=== PATIENT | male | born 1990 | race Caucasian/White ===

== ENCOUNTER → 2018-01-16 14:59 | Outpatient (CLI) | payer OTHER, SELFPAY ==
[2018-01-16 15:38] LABS: Basophils % 0.7 % (0.1-2.0); Eosinophils # 0.2 K/mm3 (0.0-0.4); Eosinophils % 2.4 % (0.1-12.0); Hematocrit 47.7 % (42.0-52.0); Hemoglobin 16.7 g/dL (14.1-18.0); Lymphocytes # 2.8 K/mm3 (0.7-4.5); Lymphocytes % 42.5 K/mm3 (10-50); Mean Corpuscular Hemoglobin 30.2 pg (27.0-31.2); Mean Corpuscular Volume 86.3 fl (80-94); Mean Platelet Volume 8.5 fl (7.4-10.4); Monocytes # 0.3 K/mm3 (0.1-1.0); Monocytes % 4.5 % (1.7-9.3); Neutrophils # 3.3 K/mm3 (1.8-7.8); Platelet Count 204 K/mm3 (142-424); Red Blood Count 5.53 M/mm3 (4.60-6.20); Red Cell Distribution Width 13.1 % (11.5-17.5); White Blood Count 6.6 K/mm3 (4.8-10.8)
[2018-01-16 16:01] LABS: Hemoglobin A1C 4.8 % (0.0-7.0)
[2018-01-16 18:14] LABS: Alanine Aminotransferase 43 U/L (12-78); Albumin Level 4.2 gm/dL (3.4-5.0); Albumin/Globulin Ratio 1.3 (1.1-1.8); Alkaline Phosphatase 55 U/L (46-116); Anion Gap 12.3 mEq/L (5-15); Aspartate Amino Transferase 22 U/L (15-37); Bilirubin,Total 0.5 mg/dL (0.2-1.0); Blood Urea Nitrogen 12 mg/dL (7-18); Calcium 9.4 mg/dL (8.5-10.1); Carbon Dioxide 27 mmol/L (21.0-32.0); Chloride 104 mmol/L (98-107); Chol/HDL Ratio 6.1 (1-3.5); Cholesterol 184 mg/dL (140-200); Creatinine,Serum 0.89 mg/dL (0.70-1.30); Estimated Glomerular Filt Rate 103 ml/min (>60); GFR (African American) 125 ML/MIN (>60); Globulin 3.2 gm/dl (1.3-3.2); Glucose 84 mg/dL (74-106); HDL Cholesterol 30 mg/dL (27-67); LDL Cholesterol 144 mg/dL (0-130); Potassium 4.3 mmoL/L (3.5-5.1); Sodium 139 mmol/L (136-145); Thyroid Stimulating Hormone 2.02 uIU/ml (0.358-3.740); Total Protein,Serum 7.4 gm/dL (6.4-8.2); Triglycerides 52 mg/dL (30-200); VLDL Cholesterol 10 mg/dL (0-40)
== END ==
PROVIDERS: PCP Family Medicine; Visit Provider Nuclear Medicine Nuclear Cardiology
DX: R06.02 Shortness of breath (principal); I10 Essential (primary) hypertension
CPT/HCPCS: 36415; 80053; 80061; 83036; 84443; 85025

== ENCOUNTER 2020-06-18 15:16 | Emergency (ER) | payer BC, SELFPAY ==
[2020-06-18 15:27] VITALS: BP 171/116; PULSE 101; RESP 15; TEMP 37.2; O2SAT 97; BMI 30.8
[2020-06-18 15:30] VITALS: BP 163/104; PULSE 86; RESP 19; TEMP 37.2; O2SAT 100; BMI 31.6
[2020-06-18 15:46] VITALS: BP 154/96; PULSE 86; RESP 19; TEMP 37.2; O2SAT 100
[2020-06-18 15:47] LABS: UTC Strep Screen (Rapid) Negative (Negative)
--- NOTE | 2020-06-18 15:47 | HMH.EDUTC ---
[facility] [place] Disposition Clinical Impression: Sinusitis Qualifiers: Sinusitis location: unspecified location Chronicity: unspecified Qualified Code(s): J32.9 - Chronic sinusitis, unspecified Disposition: Home, Self-Care Condition on Discharge: Good Instructions: Sore Throat, Cough, DI for Sinusitis, DI for Cough -- Adult Additional Instructions: *Monitor Temp, Over the counter Motrin or Tylenol as directed/as needed Tylenol every 4 hours and Motrin every 6 hours (as long as your family doctor has told you that you can take it) for fever or pain. and straight to ER if unable to lower temp less than 101.0 after medication given *Warm salt water gargles may help to soothe the throat *Throat Lozenges *Warm fluids like tea with honey may help to soothe the throat *Sleep elevated *Humidifier/Vaporizer *Flonase 2 sprays in each nostril daily but be aware that it may take 2-3 days before you notice improvement Your throat swab was sent for culture. Those results are typically sent to your primary care. Be sure to follow up in 2-3 days with your family doctor/primary care physician if no improvement so they can review those result and treat if necessary. If you don?t have a primary care doctor, I recommend you get one but in the mean time, you will have to return to a walk in clinic Follow up IMMEDIATELY for new or worsening symptoms or no Noticeable improvement over the next 48-72 hours. 911 for difficulty breathing or swallowing You was tested for COVID 19, it may take 48-72 hours for your test results to come back Make sure to follow instructions on handout that you was given to help prevent the spread of COVID Call back to the [facility] in the next 48-72 hours to see if your test results are back and the result. No work until test result back and negative You blood pressure was elevated in the [facility] today, make sure to follow up with Family Doctor as recommended for further treatment and evaluation Prescriptions: Amoxicillin/Potassium Clav [Augmentin 875-125 Tablet] 1 tab PO Q12H 7 Days #14 tab Transmission Status: Pending to [facility] # [id number] Fluticasone Propionate [Flonase 50mcg nasal spray 16gm] 1 - 2 spr NS DAILY #1 bottle Transmission Status: Pending to [facility] # [id number] Referrals: Truong Day MD [Primary Care Provider] - As needed Forms: Work/School Release Medical Decision Making - Omar Inquiry Pt receiving controlled substance: No Omar was queried for this patient: No Vital Signs: 06/18/20 15:27 06/18/20 15:30 06/18/20 15:46 Temperature 98.9 F 98.9 F 98.9 F Temperature Source Temporal Artery Scan Oral Pulse Rate 86 Pulse Rate [Right Radial] 101 H 86 Respiratory Rate 15 19 19 Blood Pressure 163/104 H Blood Pressure [Right Arm] 171/116 H 163/104 H Blood Pressure Mean [Right Arm] 134 123 Blood Pressure Source [Right Arm] Automatic Cuff Blood Pressure Position [Right Arm] Sitting 02 Sat by Pulse Oximetry 97 100 Oxygen Delivery Method Room Air Room Air - Lab Data Lab results reviewed: Yes: I reviewed the patient's lab results. Lab Results 06/18/20 15:44: Influenza Type A Ag Negative, Influenza Type B Ag Negative 06/18/20 15:44: Strep Scn Rapid Clinic Negative Orders (Tests/Meds): ORDERS Category Date Time Status Covid-19 Nasal PCR Sendout Jet Stat Lab 06/18/20 15:39 Received Strep Screen Confirmation Stat Micro 06/18/20 15:44 Received Medical Decision Narrative: Discussed elevated blood pressure withe patient and recommended transfer back to the ED for further work up and evaluation Patient declined transfer and treatment of elevated blood pressure advised that he is aggrivated and feels like that is why his blood pressure is elevated discussed risk with patient and he still declined states that he will follow up with his PCP if it continues to stay elevated [facility] [place] HPI - General Stated complaint: SOB,VALENTINE,Sore throat Time Seen by Provider: 06/18/20 15:47 Mode of Arrival: Ambu
[2020-06-18 15:48] LABS: UTC Influenza A Antigen Negative (Negative); UTC Influenza B Antigen Negative (Negative)
[2020-06-21 12:49] LABS: Covid-19 Nasal PCR Sendout Lex NOT DETECTED
== END 2020-06-18 16:22 | disposition home or self-care (01) ==
PROVIDERS: Emergency Provider Nurse Practitioner; PCP Family Medicine
DX: J32.9 Chronic sinusitis, unspecified (principal); F17.210 Nicotine dependence, cigarettes, uncomplicated; Z20.828 Contact with and (suspected) exposure to other viral communicable diseases
CPT/HCPCS: 87804; 87880; 99202; U0004

== ENCOUNTER 2021-02-12 23:29 | Emergency (ER) | payer BC, SELFPAY ==
[2021-02-12 23:36] VITALS: BP 141/97; PULSE 76; RESP 18; TEMP 36.4; O2SAT 99; BMI 31.4
--- NOTE | 2021-02-12 23:37 | XR_ITS ---
PROCEDURE INFORMATION: Exam: XR Left Elbow Exam date and time: 02/12/2021 11:37 PM Age: 31 years old Clinical indication: Injury or trauma; Work related; Blunt trauma (contusions or hematomas); Left; Patient HX: Farm equiptment accident, pain, knot on elbow TECHNIQUE: Imaging protocol: XR Left elbow. Views: 3 or more views. COMPARISON: No relevant prior studies available. FINDINGS: Bones/joints: Normal. Soft tissues: Normal. IMPRESSION: No acute findings.
--- NOTE | 2021-02-13 00:37 | HMH.EDUPEXT ---
ED Disposition Clinical Impression: Left elbow contusion Qualifiers: Encounter type: initial encounter Qualified Code(s): S50.02XA - Contusion of left elbow, initial encounter Disposition: Home, Self-Care Condition on Discharge: Good Instructions: DI for Elbow Pain Additional Instructions: ice and advil/tyenol and see pcp for follow up Referrals: Truong Day MD [Primary Care Provider] - - Critical Care Critical Care Time: No Attestation: On 02/12/21, the high probability of a clinically significant, sudden or life threatening deterioration of the following system(s) required my full and direct attention, intervention and personal management. The time I documented below is in addition to time spent performing reported procedures but includes the following listed in this critical care notation. Medical Decision Making - Medical Records Medical records reviewed: Yes: I reviewed the patient's medical records. - Omar Inquiry Pt receiving controlled substance: No Vital Signs: 02/12/21 23:36 Temperature 97.6 F Temperature Source Oral Pulse Rate [Right] 76 Respiratory Rate 18 Blood Pressure [Right Arm] 141/97 H Blood Pressure Mean [Right Arm] 111 Blood Pressure Source [Right Arm] Automatic Cuff Blood Pressure Position [Right Arm] Sitting 02 Sat by Pulse Oximetry 99 Oxygen Delivery Method Room Air - Lab Data Lab results reviewed: Yes: I reviewed the patient's lab results. Orders (Tests/Meds): ED MEDICATIONS Discontinued Medications Generic Name Dose Route Start Last Admin Trade Name Freq PRN Reason Stop Dose Admin Ketorolac Tromethamine 60 mg 02/12/21 23:38 02/12/21 23:39 Ketorolac 60mg/2ml Vial IM 02/12/21 23:39 60 mg ONCE ONE Administration Methylprednisolone Sodium Succinate 125 mg 02/12/21 23:38 02/12/21 23:39 Methylprednisolone Sod Succ 125mg Vial IM 02/12/21 23:39 125 mg ONCE ONE Administration - Radiology Data #1 Image(s): Elbow Image Reviewed: Yes I reviewed the patient's radiology image Preliminary Findings: No Fracture Seen Upper Extremity HPI - General Chief Complaint: Extremity Injury, Upper Stated Complaint: Injury to left elbow Time Seen by Provider: 02/13/21 00:00 Mode of Arrival: Ambulatory Source of Information: Patient, Medical Record Limitations: No Limitations Description of Symptoms (Recalled from ER Triage Doc. by RN): Pt was pulling on a wrench when it slipped and he fell back hitting his left Elbow on a piece of equipment. Pt has a large hematoma on back of elbow. Pt has full ROM and no active bleeding. - History of Present Illness HPI narrative: acute injury lt elbow while pulling on wrench and hit elbow - with pain and swelling complaint: injury to: left, elbow Onset (ago): hour(s) Other Extremity Injury: Left: elbow Other injuries: none Handedness: right Place: home Severity: moderate Context: direct blow Associated symptoms: denies other symptoms - Related Data Home Medications Medication Instructions Recorded Confirmed No Known Home Medications 02/12/21 02/12/21 Allergies Allergy/AdvReac Type Severity Reaction Status Date / Time erythromycin base Allergy Unknown Verified 11/19/19 00:08 [ERYTHROMYCIN BASE] [facility] History - Hepatitis A Screen Drug use history?: No High risk sexual behaviors?: No History of sexually transmitted infection?: No Currently employed?: No Childcare worker?: No Do you have indoor plumbing?: Yes Do you have electricity?: Yes Attestation statement:: This patient has been screened for Hepatitis A risk factors. I have reviewed the patient's past medical history: Yes Medical History: Denies:: Cancer, Diabetes Mellitus Type 1, Diabetes Mellitus Type 2, Internal Pacemaker, MRSA Other Surgeries: No: Pacemaker Amputation: No Fractures: No - Social History Smoking Status: Current every day smoker Tobacco Type: cigarettes # Packs/Day (cigarettes): 1
[2021-02-13 00:48] VITALS: BP 138/82; PULSE 74; RESP 16; TEMP 36.4; O2SAT 99
== END 2021-02-13 00:50 | disposition home or self-care (01) ==
PROVIDERS: Emergency Provider Emergency Medicine; PCP Family Medicine
DX: S50.02XA Contusion of left elbow, initial encounter (principal); F17.210 Nicotine dependence, cigarettes, uncomplicated; W01.0XXA Fall on same level from slipping, tripping and stumbling without subsequent striking against object, initial encounter; Y92.89 Other specified places as the place of occurrence of the external cause
CPT/HCPCS: 73080; 96372; 99282

== ENCOUNTER 2021-05-29 11:19 | Emergency (ER) | payer BC, SELFPAY ==
[2021-05-29 12:22] VITALS: BP 146/95; PULSE 55; RESP 18; TEMP 36.7; O2SAT 97; BMI 32.1
--- NOTE | 2021-05-29 12:38 | HMH.EDUTC ---
[facility] [place] Disposition Clinical Impression: Exposure to COVID-19 virus, Elevated blood pressure reading Disposition: Home, Self-Care Condition on Discharge: Good Instructions: Lifestyle Habits May Lower Risk of Hypertension in Women, Preventing the Spread of Coronavirus Discharge Instructions Additional Instructions: Eat a healthy diet and begin a low impact exercise program. Check your blood pressure frequently. Follow up with your Primary Care Physician and discuss your blood pressure readings. You may need to go back on the blood pressure medications. Drink plenty of fluids. Take tylenol for pain or fever. Return if you begin to have difficulty breathing. Follow up with your regular doctor. GO TO THE ER FOR ANY WORSENING SYMPTOMS Quarantine until you know the results of your covid-19 test. If it is positive, the health department should call you and give you further instructions about your length of Quarantine and other things. Notify your school or workplace of your results and follow their instructions regarding return to work/school. Referrals: Truong Day MD [Primary Care Provider] - Time of Disposition: 12:42 Medical Decision Making - Medical Records Medical records reviewed: No: I reviewed the patient's medical records. - Omar Inquiry Pt receiving controlled substance: No Vital Signs: 05/29/21 12:22 Temperature 98.1 F Temperature Source Oral Pulse Rate [Left] 55 L Respiratory Rate 18 Blood Pressure [Right Arm] 146/95 H Blood Pressure Mean [Right Arm] 112 02 Sat by Pulse Oximetry 97 [facility] [place] HPI - General Stated complaint: covid test/exposure Time Seen by Provider: 05/29/21 12:38 Mode of Arrival: Ambulatory Source of Information: Patient Limitations: No Limitations Description of Symptoms (Recalled from Triage Doc. by RN): pt was exposed to a covid positive coworker. HEENT Symptoms (Recalled from RN notes): No Resp Symptoms (Recalled from RN notes): No Skin Symptoms (Recalled from RN notes): No MS Symptoms (Recalled from RN notes): No Functional Status (Recalled from RN notes): na - History of Present Illness Provider Complaint: He was indirectly exposed to covid-19 at his job. He denies any symptoms. He is concerned about his blood pressure being up. In the past he took some blood pressure medication, but she stopped it sometime in the past and his blood pressure has been ok when it was checked up until today. - Related Data Home Medications Medication Instructions Recorded Confirmed No Known Home Medications 02/12/21 02/12/21 Allergies Allergy/AdvReac Type Severity Reaction Status Date / Time erythromycin base Allergy Unknown Verified 05/29/21 12:25 [ERYTHROMYCIN BASE] - Worker's Comp Is this a Worker's Comp case?: No [facility] History - Hepatitis A Screen Drug use history?: No High risk sexual behaviors?: No History of sexually transmitted infection?: No Currently employed?: No Childcare worker?: No Do you have indoor plumbing?: Yes Do you have electricity?: Yes Attestation statement:: This patient has been screened for Hepatitis A risk factors. I have reviewed the patient's past medical history: Yes Medical History: Denies:: Cancer, Diabetes Mellitus Type 1, Diabetes Mellitus Type 2, Internal Pacemaker, MRSA Other Surgeries: No: Pacemaker Amputation: No Fractures: No - Social History Smoking Status: Current every day smoker Tobacco Type: cigarettes # Packs/Day (cigarettes): 1 Alcohol Intake: never Alcohol Intake Frequency:: holidays/special occasions only Occupational Status: employed Housing: house ROS Obtained: Yes All systems reviewed & no additional complaints - Constitutional Constitutional: Reports system reviewed and no additional complaints, except as docu - Eyes Eyes: Reports system reviewed and no additional complaints, except as docu - ENT Ears, Nose, Mouth, and Throat: Reports system reviewed and no additi
[2021-05-29 13:31] VITALS: BP 146/95; PULSE 55; RESP 16; TEMP 36.7
== END 2021-05-29 13:31 | disposition home or self-care (01) ==
PROVIDERS: Emergency Provider Nurse Practitioner Family; PCP Family Medicine
DX: Z20.822 Contact with and (suspected) exposure to COVID-19 (principal); R03.0 Elevated blood-pressure reading, without diagnosis of hypertension; F17.210 Nicotine dependence, cigarettes, uncomplicated
CPT/HCPCS: 99202; G0463; U0003

== ENCOUNTER 2021-07-25 13:32 | Emergency (ER) | payer BC, SELFPAY ==
[2021-07-25 14:17] VITALS: BP 173/118; PULSE 81; RESP 18; TEMP 36.8; O2SAT 98; BMI 33.0
--- NOTE | 2021-07-25 15:07 | HMH.EDUTC ---
[facility] [place] Impression: Elevated blood pressure reading Sinusitis Qualifiers: Sinusitis location: unspecified location Chronicity: acute Recurrence: non-recurrent Qualified Code(s): J01.90 - Acute sinusitis, unspecified Disposition: Home, Self-Care Condition on Discharge: Good Instructions: Essential Hypertension, DI for Sinusitis Additional Instructions: Drink plenty of fluids. Take tylenol or ibuprofen for pain or fever. Take the medications as directed. Follow up with your regular doctor. GO TO THE ER FOR ANY WORSENING SYMPTOMS You have to follow up with your primary care physician in around 10 days to 2 weeks to see how the blood pressure medication is doing and see if anything needs to be changed. Prescriptions: Amoxicillin/Potassium Clav [Augmentin 875-125 Tablet] 1 tab PO Q12H 10 Days #20 tab Transmission Status: Received by [id number] predniSONE [Deltasone 10mg tablet] 10 mg PO BID 3 Days #6 tab Transmission Status: Received by [facility][id number] Fluticasone Propionate [Flonase 50mcg nasal spray 16gm] 1 spr NS DAILY 30 Days #120 each Transmission Status: Received by [facility][id number] lisinopriL [Lisinopril] 10 mg PO DAILY 30 Days #30 tab Transmission Status: Received by [facility][id number] Referrals: Truong Day MD [Primary Care Provider] - Time of Disposition: 15:20 Medical Decision Making - Medical Records Medical records reviewed: No: I reviewed the patient's medical records. - Omar Inquiry Pt receiving controlled substance: No Vital Signs: 07/25/21 14:17 07/25/21 15:23 Temperature 98.2 F 98.2 F Temperature Source Oral Pulse Rate 81 Pulse Rate [Right Brachial] 81 Respiratory Rate 18 18 Blood Pressure 173/118 H Blood Pressure [Right Arm] 173/118 H Blood Pressure Mean [Right Arm] 136 Blood Pressure Source [Right Arm] Automatic Cuff Blood Pressure Position [Right Arm] Sitting 02 Sat by Pulse Oximetry 98 Oxygen Delivery Method Room Air Medical Decision Narrative: He request to be prescribed his blood pressure medication. He has been off of it for a while because he did not f/u with his pcp to get refills. [facility] [place] - General Stated complaint: sinus pressure, congestion Time Seen by Provider: 07/25/21 15:07 Mode of Arrival: Ambulatory Source of Information: Patient Limitations: No Limitations Description of Symptoms (Recalled from Triage Doc. by RN): coughing. sinus HEENT Symptoms (Recalled from RN notes): Yes Resp Symptoms (Recalled from RN notes): Yes Skin Symptoms (Recalled from RN notes): No MS Symptoms (Recalled from RN notes): No Functional Status (Recalled from RN notes): yes - History of Present Illness Provider Complaint: He has had sinus congestion and sinus drainage for the past 3 days. He believes he has allergies that is turning into a sinus infection. He denies any fever or chills - Related Data Previous Rx's Medication Instructions Recorded Amoxicillin/Potassium Clav 1 tab PO Q12H 10 Days #20 tab 07/25/21 [Augmentin 875-125 Tablet] Fluticasone Propionate [Flonase 1 spr NS DAILY 30 Days #120 each 07/25/21 50mcg nasal spray 16gm] lisinopriL [Lisinopril] 10 mg PO DAILY 30 Days #30 tab 07/25/21 predniSONE [Deltasone 10mg tablet] 10 mg PO BID 3 Days #6 tab 07/25/21 Allergies Allergy/AdvReac Type Severity Reaction Status Date / Time erythromycin base Allergy Unknown Verified 05/29/21 12:25 [ERYTHROMYCIN BASE] - Worker's Comp Is this a Worker's Comp case?: No Is this an [facility] Worker's Comp?: No Is this a [facility] Worker's Comp?: No H History - Hepatitis A Screen Drug use history?: No High risk sexual behaviors?: No History of sexually transmitted infection?: No Currently employed?: No Childcare worker?: No Do you have indoor plumbing?: Yes Do you have electricity?: Yes Attestation statement:: This patient has been screened for Hepatitis A risk factors. I have reviewed the p
[2021-07-25 15:23] VITALS: BP 173/118; PULSE 81; RESP 18; TEMP 36.8
== END 2021-07-25 15:23 | disposition home or self-care (01) ==
PROVIDERS: Emergency Provider Nurse Practitioner Family; PCP Family Medicine
DX: J01.90 Acute sinusitis, unspecified (principal); R03.0 Elevated blood-pressure reading, without diagnosis of hypertension; F17.210 Nicotine dependence, cigarettes, uncomplicated
CPT/HCPCS: 99202; G0463

== ENCOUNTER → 2022-06-17 15:08 | Outpatient (CLI) | payer BC, SELFPAY ==
--- NOTE | 2022-06-17 15:16 | XR_ITS ---
FINAL REPORT CLINICAL HISTORY: WHEEZING, covid 1 mth ago, smoker COMPARISON: November 18, 2019 FINDINGS: TWO-VIEW CHEST Two views of the chest were obtained. The heart size and pulmonary vascularity are within normal limits. The mediastinum is normal. There is mild bronchial wall thickening which may represent bronchitis. There is no pneumothorax. The bony thorax is intact. IMPRESSION: Mild bronchial wall thickening, may represent bronchitis. Reviewed, Interpreted and Dictated by Misbah Willson III, MD Transcribed by Suzette Keith Authenticated and [facility]
== END ==
PROVIDERS: PCP Family Medicine; Visit Provider Physician Assistant
DX: R06.2 Wheezing (principal)
CPT/HCPCS: 71046

== ENCOUNTER 2022-11-13 09:49 | Emergency (ER) | payer BC, SELFPAY ==
--- NOTE | 2022-11-13 10:16 | EXP.UTC ---
Discharge Plan Disposition Patient Disposition: Home, Self-Care Condition: Good Prescriptions Prescriptions: New ondansetron 4 mg Tablet,Disintegrating 4 mg PO Q8H PRN (Reason: Nausea) Qty: 12 0RF acyclovir 5 % cream 1 applic topical Q4H 7 Days Qty: 5 0RF No Action amoxicillin-pot clavulanate 1 EACH tablet 1 tab PO Q12H 10 Days Qty: 20 0RF prednisone 10 MG tablet 10 mg PO BID 3 Days Qty: 6 0RF lisinopril 10 MG tablet 10 mg PO DAILY 30 Days Qty: 30 0RF fluticasone propionate 120 SPR/BOT bottle 1 spr NS DAILY 30 Days Qty: 120 2RF Referrals Follow up/Referrals: Truong Day MD [Primary Care Provider] - See instructions Activity Restrictions/Add. Instructions Additional Instructions/Restrictions: Drink plenty of fluids. Take tylenol or ibuprofen for pain or fever. Take the medications as directed. Follow up with your regular doctor. GO TO THE ER FOR ANY WORSENING SYMPTOMS Return a stool sample if you diarrhea continues. Clinical Impressions Clinical Impression: Gastroenteritis, Fever blister Stand Alone Forms Stand Alone Forms: Work/School Release Instructions Patient Instructions: DI for Viral Gastroenteritis -- Adult, Ondansetron, Acyclovir Topical Discharge ED Provider: Damian Hanson [facility] General Stated complaint: Diarrhea, Vomiting Time Seen by Provider: 11/13/22 10:16 History of Present Illness Provider Complaint: He states that for the past 3 days he has had diarrhea. He started out having n/v also, but that has resolved. He denies any abdominal pain. He also states that he he has several fever blisters that he would like some medication prescribed to put on them. Related Data Previous Rx's Medication Instructions Recorded amoxicillin 875 mg-potassium 1 tab PO Q12H 10 days #20 tabs 07/25/21 clavulanate 125 mg tablet fluticasone propionate 50 1 spr NS DAILY 30 days #120 ea 07/25/21 mcg/actuation nasal spray,suspension lisinopril 10 mg tablet 10 mg PO DAILY 30 days #30 tabs 07/25/21 prednisone 10 mg tablet 10 mg PO BID 3 days #6 tabs 07/25/21 acyclovir 5 % topical cream 1 applic topical Q4H 7 days #5 11/13/22 grams ondansetron 4 mg disintegrating 4 mg PO Q8H PRN Nausea #12 tabs 11/13/22 tablet Allergies Allergy/AdvReac Type Severity Reaction Status Date / Time erythromycin base Allergy Unknown Verified 11/13/22 10:41 [ERYTHROMYCIN BASE] [facility] Disclaimer: The information contained in this section may have been updated after the patient was seen, as this information can be updated by other users. Social History Smoking Status: Current every day smoker tobacco type: cigarettes packs per day: 1 second hand exposure: No alcohol intake: never current occupational status: other Travel in the last 8 weeks: None housing: house current occupational exposures/hazards: No caffeine: Yes ROS Obtained: Yes All systems reviewed & no additional complaints except as documented Constitutional Constitutional: Denies chills, Denies fever(s) and Reports poor appetite ENT Ears, Nose, Mouth, and Throat: Denies dizziness and Denies sore throat Cardiovascular Cardiovascular: Denies dyspnea Respiratory Respiratory: Denies chest congestion, Denies cough and Denies dyspnea Gastrointestinal Gastrointestingal: Reports cramping, diarrhea, nausea and vomiting; Denies abdominal pain Genitourinary Male Genitourinary: Denies hematuria, Denies urinary frequency, Denies urinary hesitancy, Denies urinary incontinence and Denies urinary urgency Musculoskeletal Musculoskeletal: Denies arthralgias Integumentary/Breasts Skin/Breast: Denies rash Neurologic Neurologic: Denies dizziness Physical Exam General General appearance: alert and in no apparent distress Head Head exam: atraumatic and normocephalic Eye Eye exam: Present normal appearance, PERRL and EOMI ENT ENT
[2022-11-13 10:20] VITALS: BP 150/90; PULSE 74; RESP 20; TEMP 36.7; O2SAT 97; BMI 33.0
[2022-11-13 11:29] VITALS: BP 150/90; PULSE 74; RESP 20; TEMP 36.7; O2SAT 97
[2022-11-13 11:34] LABS: Adenovirus F 40/41, stool Not Detected (NotDetected); Astrovirus Not Detected (NotDetected); Campylobacter Not Detected (NotDetected); Clostridium Difficile A/B, PCR Not Detected (NotDetected); Cryptosporidium Not Detected (NotDetected); Cyclospora Cayetanesis Not Detected (NotDetected); Entamoeba histolytica Not Detected (NotDetected); Enteroaggregative E coli Not Detected (NotDetected); Enteropathogenic E coli Not Detected (NotDetected); Enterotoxigenic E coli Not Detected (NotDetected); Giardia lamblia Not Detected (NotDetected); Norovirus Not Detected (NotDetected); Plesimonas Shigalloides, PCR Not Detected (NotDetected); Rotavirus A Not Detected (NotDetected); Salmonella, PCR Not Detected (NotDetected); Sapovirus Not Detected (NotDetected); Shiga-like toxin E coli Not Detected (NotDetected); Shigella Enterovasive E coli Not Detected (NotDetected); Vibrio Cholerae Not Detected (NotDetected); Vibrio, PCR Not Detected (NotDetected); Yersinia Entercolitica, PCR Not Detected (NotDetected)
== END 2022-11-13 11:28 | disposition home or self-care (01) ==
PROVIDERS: Emergency Provider Nurse Practitioner Family; PCP Family Medicine
DX: K52.9 Noninfective gastroenteritis and colitis, unspecified (principal); B00.1 Herpesviral vesicular dermatitis
CPT/HCPCS: 87507; 99212; 99213; G0463

== ENCOUNTER → 2024-11-20 07:13 | Outpatient (CLI) | payer BC, SELFPAY | LOC: SL 07:13 | PROVIDERS: PCP Family Medicine; Visit Provider Family Medicine | DX: R06.83 Snoring (principal); R53.83 Other fatigue; I10 Essential (primary) hypertension; E66.9 Obesity, unspecified | CPT/HCPCS: G0399 ==